=== PATIENT | female | born 1965 | race Caucasian/White ===

== ENCOUNTER → 2019-04-02 11:02 | Outpatient (BNVA) | payer MEDICARE, MEDICAID, SELFPAY | PROVIDERS: Visit Provider Nurse Practitioner Family | DX: I10 Essential (primary) hypertension (principal); E78.2 Mixed hyperlipidemia; K21.9 Gastro-esophageal reflux disease without esophagitis; D64.9 Anemia, unspecified | CPT/HCPCS: 80053; 80061; 84443; 85025 ==

== ENCOUNTER → 2019-10-25 11:05 | Outpatient (BNVA) | payer MEDICARE, MEDICAID, SELFPAY | PROVIDERS: Visit Provider Nurse Practitioner Family | DX: I10 Essential (primary) hypertension (principal); Z12.4 Encounter for screening for malignant neoplasm of cervix; Z12.31 Encounter for screening mammogram for malignant neoplasm of breast | CPT/HCPCS: 80053; 80061; 84443; 85025; 88175 ==

== ENCOUNTER 2019-11-06 08:21 | Outpatient (CLI) | payer MEDICARE, MEDICAID, SELFPAY ==
[2019-11-06] MEDS: iohexol 300 mg/mL 50 mL Btl PO (08:36)
[2019-11-06] MEDS: iohexol 300 mg/mL 100 mL Btl IV (09:42)
--- NOTE | 2019-11-06 10:00 | CT_ITS ---
WS: [id number] CT ABDOMEN PELVIS TECHNIQUE: Contrast-enhanced CT of the abdomen and pelvis with coronal and sagittal reformatted image s. CLINICAL INFORMATION: lower abdominal pain COMPARISON: None. DLP: 1150.[address] scans at [facility] use at least one of these dose optimization techniques: automat ed exposure control; mA and/or kV adjustment per patient size (includes targeted exams where dose is matched to clinical indication); or iterative reconstruction. FINDINGS: Diffuse fatty infiltration liver. Normal gallbladder. Normal spleen. Adrenal glands are normal. Antonette l renal parenchymal enhancement. No hydronephrosis. Normal pancreas. Portal veins and splenic vein ar e patent. Lung bases are well aerated. Normal GE junction. Normal caliber abdominal aorta. No abdomin al lymphadenopathy. Sigmoid diverticulosis. No evidence of acute diverticulitis. No evidence of small or large bowel obst ruction. Normal appendix. No inguinal lymphadenopathy. CT/CT abdomen pelvis w con* [id number] IMPRESSION: 1. Diffuse fatty infiltration liver. 2. Diverticulosis. No evidence of acute diverticulitis. 3. Appendix is normal. 4. No hydronephrosis in either kidney. 5. No free fluid in the abdomen or pelvis.
== END 2019-11-06 08:22 | disposition home or self-care (01) ==
LOC: RADWPI 08:26
PROVIDERS: Family Provider Nurse Practitioner Family; PCP Nurse Practitioner Family; Visit Provider Nurse Practitioner Family
DX: R10.30 Lower abdominal pain, unspecified (principal); K76.0 Fatty (change of) liver, not elsewhere classified; K57.30 Diverticulosis of large intestine without perforation or abscess without bleeding
CPT/HCPCS: 74177; Q9967

== ENCOUNTER 2019-12-11 11:29 | Outpatient (CLI) | payer MEDICARE, MEDICAID, SELFPAY ==
--- NOTE | 2019-12-11 12:00 | MM_ITS ---
WS: [id number] BILATERAL DIGITAL SCREENING MAMMOGRAM WITH CAD CLINICAL INFORMATION: screening mammo HISTORY: Screening mammogram. No current complaints. COMPARISON: None. TECHNIQUE: Bilateral CC and MLO views. FINDINGS: Fatty-replaced breasts bilaterally. No suspicious focal mass, asymmetry, calcifications, or validation architect ural distortion. No evidence of malignancy. Intramammary lymph node right breast. MM/[place] [id number] IMPRESSION: BI-RADS: 2-Benign FOLLOW UP: 1 Year Follow-up Recommend return to annual screening mammography.
== END 2019-12-11 11:30 | disposition home or self-care (01) ==
LOC: RADSHAW 11:34
PROVIDERS: PCP Nurse Practitioner Family; Visit Provider Nurse Practitioner Family
DX: Z12.31 Encounter for screening mammogram for malignant neoplasm of breast (principal)
CPT/HCPCS: 77067

== ENCOUNTER → 2020-07-23 12:06 | Outpatient (BNVA) | payer MEDICARE, MEDICAID, SELFPAY | PROVIDERS: PCP Nurse Practitioner Family; Visit Provider Nurse Practitioner Family | DX: I10 Essential (primary) hypertension (principal); L30.9 Dermatitis, unspecified; E78.2 Mixed hyperlipidemia; K21.9 Gastro-esophageal reflux disease without esophagitis | CPT/HCPCS: 80053; 80061; 84443; 85025 ==

== ENCOUNTER → 2020-11-18 12:26 | Outpatient (BNVA) | payer MEDICARE, MEDICAID, SELFPAY | PROVIDERS: PCP Nurse Practitioner Family; Visit Provider Nurse Practitioner Family | DX: E78.2 Mixed hyperlipidemia (principal); Z23 Encounter for immunization; I10 Essential (primary) hypertension; F79 Unspecified intellectual disabilities | CPT/HCPCS: 80053; 80061; 85025 ==

== ENCOUNTER → 2021-06-25 12:01 | Outpatient (BNVA) | payer MEDICARE, MEDICAID, SELFPAY | PROVIDERS: PCP Nurse Practitioner Family; Visit Provider Nurse Practitioner Family | DX: E78.5 Hyperlipidemia, unspecified (principal); K21.9 Gastro-esophageal reflux disease without esophagitis; D64.9 Anemia, unspecified; I10 Essential (primary) hypertension; E78.2 Mixed hyperlipidemia; Z12.31 Encounter for screening mammogram for malignant neoplasm of breast; Z12.11 Encounter for screening for malignant neoplasm of colon; J30.2 Other seasonal allergic rhinitis; J32.9 Chronic sinusitis, unspecified; R05.9 Cough, unspecified | CPT/HCPCS: 80053; 80061; 84443 ==

== ENCOUNTER → 2021-07-08 11:28 | Outpatient (BNVA) | payer MEDICARE, MEDICAID, OTHER, SELFPAY | PROVIDERS: PCP Nurse Practitioner Family; Referring Provider Nurse Practitioner Family; Visit Provider Surgery | DX: Z12.11 Encounter for screening for malignant neoplasm of colon (principal) ==

== ENCOUNTER 2021-08-18 05:47 | Day surgery (SDC) | payer MEDICARE, MEDICAID, SELFPAY ==
[2021-08-16 13:19] VITALS: BMI 30.8
[2021-08-18 06:12] VITALS: BP 159/92; PULSE 73; RESP 18; TEMP 36.2; O2SAT 99
[2021-08-18] MEDS: sodium chloride 0.9% 1,000 ML 30 ML IV (06:15)
--- NOTE | 2021-08-18 06:42 | PM.HP ---
Providers/Chief Complaint Primary Care Provider: RITU Key History of Present Illness Caroline Quintero is a 55 year old female who presents for a screening colonoscopy. She reports that she had a colonoscopy greater than 10 years ago which was within normal limits. She denies any abdominal pain, nausea, vomiting, diarrhea, constipation, hematochezia and/or melena. Review of Systems General: Reports: 10 or more systems reviewed and unremarkable except in HPI and below Medications/Allergies Home Medications Medication Instructions Recorded Confirmed Last Taken Type ferrous sulfate 325 mg (65 mg 325 mg PO DAILY #30 tab 06/25/21 08/18/21 08/17/21 Rx iron) tablet levocetirizine 5 mg tablet (Xyzal) 5 mg PO DAILY 90 Days #90 tab 06/25/21 08/18/21 08/17/21 Rx lisinopril 5 mg tablet 5 mg PO DAILY #30 tab 06/25/21 08/18/21 08/17/21 Rx benzonatate 100 mg capsule 100 mg PO TID PRN #90 cap 07/02/21 08/18/21 08/17/21 Rx lovastatin 40 mg tablet 60 mg PO DAILY #90 tab 07/22/21 08/18/21 08/17/21 Rx diclofenac sodium 75 mg 75 mg PO DAILY PRN 08/16/21 08/18/21 08/17/21 History tablet,delayed release naproxen 500 mg tablet,delayed 500 mg PO DAILY 08/16/21 08/18/21 08/17/21 History release (EC-Naproxen) omeprazole 20 mg capsule,delayed 20 mg PO DAILY 08/16/21 08/18/21 08/17/21 History release Allergies Allergy/AdvReac Type Severity Reaction Status Date / Time aspirin Allergy ADR-Abdominal Verified 08/18/21 06:10 Pain PFSH Acute PFSH: Medical History Anemia GERD (gastroesophageal reflux disease) Hyperlipidemia Hypertension Surgical History Hx of tonsillectomy Hx of tubal ligation Family History Mother Cancer myeloma Social History Smoking and tobacco status: never smoked Second hand smoke exposure: No Alcohol intake: never Lives independently: Yes Household members: children Housing: House Marital status: / service: No Current occupational status: unemployed History of recent travel: No Current gender identity: Female Vitals/I&O/Wt Last Vital Signs Temp 97.1 F L 08/18/21 06:12 Pulse 73 08/18/21 06:12 Resp 18 08/18/21 06:12 BP 159/92 08/18/21 06:12 Pulse Ox 99 08/18/21 06:12 Weight last 48 hrs Weight 191 lb Physical Exam Narrative: General : Patient is well developed , no acute distress, oriented x3 Head : Normal cephalic, a-traumatic. Ears : Pinnae and external canal are normal. Hearing is normal. Eyes : PERRLA, Sclera and injection are normal. No conjunctival discharge. Nose : Mucous membranes are without erythema. Throat : buccal mucosa is normal, gums are without significant recession or hypertrophy. Lungs : Equal chest rise bilaterally, no use of accessory muscles, trachea is midline. Cor : Rate and rhythm are normal. Abdomen : Soft, ND, NT, no g/r/m Extremities : No edema, no cyanosis or clubbing, dorsalis pedis pulses are present bilaterally, non-tender to palpation of calves. Upper extremities are normal bilaterally. Back : non-tender to palpation, no CVA tenderness. Neuro : CN II - XII intact, Upper and lower extremities have equal and full strength A&P Assessment and plan (1) Colon cancer screening: Status: Acute Plan Colonoscopy The risks and benefits of the procedure, including bleeding, infection, intestinal perforation requiring surgery, missed lesion, or explained to the patient. She is understanding of the risks and wishes to proceed. Attestations Medical Necessity Statement*: Patient will be discharged after procedure Coding Level of Care Code Acute Installment Loan Collector for Natty Sheets Diagnoses Colon cancer screening Z12.11
--- NOTE | 2021-08-18 06:45 | ANES.PREANE2 ---
Pre-Anesthetic Assessment Height/Weight: Height 1.68 m Weight 86.636 kg Temp Pulse Resp BP Pulse Ox 97.1 F L 73 18 159/92 99 08/18/21 06:12 08/18/21 06:12 08/18/21 06:12 08/18/21 06:12 08/18/21 06:12 Preop Diagnosis: Need for screening colonoscopy Operation Date: 08/18/21 07:00 Proposed Procedures p Colonoscopy 32654/z12.11(Not Applicable) - Lester Armendariz DO Familial anesthetic complications: none Last intake: Intake Last Liquid Date 08/17/21 Last Liquid Time 23:30 Last Solid Date 08/16/21 Last Solid Time 17:00 Social No alcohol and No tobacco Exam alert, oriented x 3, clear to auscultation bilaterally and regular rate & rhythm Airway Comments: Comments: MP 3 EDENTULOUS Pulmonary None reported CV/HEM none none Hepatic none GI none Metabolic none Musc/skel none Neuropsych none Anesthetic Plan ASA status: 2 Anesthesia: MAC Other: nPO MN Medications/Allergies Home Medications Medication Instructions Recorded Confirmed Last Taken Type ferrous sulfate 325 mg (65 mg 325 mg PO DAILY #30 tabs 06/25/21 08/18/21 08/17/21 Rx iron) tablet levocetirizine 5 mg tablet (Xyzal) 5 mg PO DAILY 90 days #90 tabs 06/25/21 08/18/21 08/17/21 Rx naproxen 500 mg tablet,delayed 500 mg PO DAILY 08/16/21 08/18/21 08/17/21 History release (EC-Naproxen) benzonatate 100 mg capsule 100 mg PO TID PRN cough #90 caps 09/15/21 Unknown Rx lisinopril 5 mg tablet 5 mg PO DAILY #30 tabs 09/15/21 Unknown Rx lovastatin 40 mg tablet See Rx Instructions .Route 09/15/21 Unknown Rx .COMPLEX #30 tabs omeprazole 20 mg capsule,delayed See Rx Instructions .Route 09/15/21 Unknown Rx release .COMPLEX #30 caps diclofenac sodium 75 mg See Rx Instructions .Route 09/17/21 Unknown Rx tablet,delayed release .COMPLEX #60 tabs Allergies Allergy/AdvReac Type Severity Reaction Status Date / Time aspirin Allergy ADR-Abdominal Verified 08/18/21 06:10 Pain Current Medications Generic Name Dose Route Start Last Admin Trade Name Freq PRN Reason Stop Dose Admin Sodium Chloride 1,000 mls @ 30 mls/hr 08/18/21 06:00 08/18/21 06:15 Sodium Chloride 0.9% IV 08/19/21 05:59 30 mls/hr .Q24H RIC Administration PFSH Anesthesia Medical History Anemia GERD (gastroesophageal reflux disease) Hyperlipidemia Hypertension Surgical History Hx of tonsillectomy Hx of tubal ligation Family History Mother Cancer myeloma Social History Smoking and tobacco status: never smoked Second hand smoke exposure: No Alcohol intake: never Lives independently: Yes Household members: children Housing: House Marital status: / service: No Current occupational status: unemployed History of recent travel: No Current gender identity: Female Data Anesthesia Cardiac Studies: No Data to Display Anesthesia Procedures Date of Procedure 08/18/21
[2021-08-18 07:19] VITALS: BP 95/65; PULSE 61; RESP 16; TEMP 36.3; O2SAT 94
[2021-08-18 07:46] VITALS: BP 118/60; PULSE 67; RESP 18; O2SAT 95
--- NOTE | 2021-08-18 13:45 | ANE.PACU2 ---
Inpatient post-anesthesia follow up: Airway intact: Yes Vital signs: Temperature 97.4 F Pulse Rate 67 Respiratory Rate 18 Blood Pressure 118/60 Pulse Oximetry 95 Oxygen Delivery Me thod Room Air Oxygen Flow Rate Fraction of Inspir ed Oxygen Hydration adequate: Yes Nausea and vomiting: No Pain level: 1 Mental status: Baseline
== END 2021-08-18 07:55 | disposition home or self-care (01) ==
PROVIDERS: PCP Nurse Practitioner Family; Visit Provider Surgery
PROC: 0DJD8ZZ Inspection of Lower Intestinal Tract, Via Natural or Artificial Opening Endoscopic (ICD-10-PCS; CPT 45378; principal; 2021-08-18 07:00)
DX: Z12.11 Encounter for screening for malignant neoplasm of colon (principal); K57.30 Diverticulosis of large intestine without perforation or abscess without bleeding; K21.9 Gastro-esophageal reflux disease without esophagitis; E78.5 Hyperlipidemia, unspecified; I10 Essential (primary) hypertension
CPT/HCPCS: G0121; J2704; J7030

== ENCOUNTER → 2021-12-01 13:01 | Outpatient (BNVA) | payer MEDICARE, MEDICAID, SELFPAY | PROVIDERS: PCP Nurse Practitioner Family; Visit Provider Nurse Practitioner Family | DX: E78.2 Mixed hyperlipidemia (principal); I10 Essential (primary) hypertension; D64.9 Anemia, unspecified; R05.9 Cough, unspecified | CPT/HCPCS: 80053; 80061; 84443; 85025 ==

== ENCOUNTER 2021-12-16 14:14 | Emergency (ER) | payer MEDICARE, MEDICAID, SELFPAY ==
--- NOTE | 2021-12-16 14:23 | XR_ITS ---
WS: [id number] Exam: XR chest 1V portable [id number] Date/Time of Exam: 12/16/2021 2:25 PM Reason For Exam: chest pain Comparison 04/03/2014. The lungs are fully expanded and clear. Normal cardiomediastinal silhouette. Prominent right-sided ep icardial fat pad. No pleural effusion. Several scattered calcified granulomas on the right. Monitorin g leads superimpose the chest. XR/XR chest 1V portable [id number] IMPRESSION: 1. No acute cardiopulmonary finding.
--- NOTE | 2021-12-16 14:23 | ECG_ITS ---
[facility] Test Date: 2021-12-16 Pat Name: Caroline Quintero Department: Room: Gender: Female Electrical Maintenance Engineer: : 1965 Requested By: Arsen Beltran Order Number: [id number] Luan MD: Sita Fuentes M.D. Measurements Intervals [place] Rate: 102 P: 52 ND: 167 QRS: 28 QRSD: 86 T: 50 QT: 335 QTc: 438 Interpretive Statements SINUS TACHYCARDIA POSSIBLE LEFT ATRIAL ENLARGEMENT [-0.1mV P-WAVE IN V1/V2] NONSPECIFIC T-WAVE ABNORMALITY ABNORMAL RHYTHM ECG Compared to ECG 04/03/2014 12:35:38 T-wave abnormality now present ST (T wave) deviation no longer present Electronically Signed On 12-16-2021 18:00:18 CDT by Sita Fuentes M.D. [email or web address]/[id number]
[2021-12-16 14:28] VITALS: BP 194/87; PULSE 107; RESP 18; TEMP 36.6; O2SAT 98; BMI 33.9
--- NOTE | 2021-12-16 14:31 | ED_ITS ---
HPI - Chest Pain General: Chief Complaint: Chest Pain Stated Complaint: cp Time Seen by Provider: 12/16/21 14:22 Source: patient Mode of arrival: ambulatory History of Present Illness: 56-year-old female presents emergency room via EMS complaining of chest discomfort. She was essentially resting she was reading books and began having chest she was given nitro in route she has not given aspirin because she claimed allergy to it she is completely pain-free on arrival she has not previously had episodes of chest pain has a history of hyperlipidemia and hypertension. MD complaint: chest discomfort Onset (ago): minute(s) Timing of current episode: episodic Prior episodes: No Onset: during rest Pain location: left chest Pain radiation: none Severity: mild Quality: tightness, aching and heaviness Relieving factors: nothing Exacerbating factors: nothing Associated symptoms: Deny abdominal pain, diaphoresis, dyspnea, fever(s), leg edema, nausea, palpitations, sense of impending doom, syncope or vomiting Treatment prior to arrival: nitroglycerin Review of Systems Const: Denies: fever(s), chills, fatigue, malaise or diaphoresis ENMT: Denies: throat pain, ear or mastoid pain, nasal discharge or nasal congestion Card: Reports: chest pain; Denies: palpitations, irregular heart rhythm or syncope Resp: Denies: dyspnea GI: Denies: abdominal pain, nausea or vomiting : Denies: flank pain, difficulty voiding, dysuria, urinary frequency or urinary urgency Skin/Breast: Denies: rash or pruritus PFSH ED PFSH: Medical History Anemia GERD (gastroesophageal reflux disease) Hyperlipidemia Hypertension Surgical History Hx of tonsillectomy Hx of tubal ligation Family History Mother Cancer myeloma Social History Smoking and tobacco status: never smoked Second hand smoke exposure: No Alcohol intake: never Lives independently: Yes Household members: children Housing: House Marital status: / service: No Current occupational status: unemployed History of recent travel: No Current gender identity: Female Physical Exam Const: COMMON NORMALS: no acute distress GENERAL APPEARANCE: cooperative and comfortable ORIENTATION/CONSCIOUSNESS: Yes awake, Yes oriented to person, Yes oriented to place and Yes oriented to time HENMT: COMMON NORMALS: normocephalic, atraumatic and hearing grossly normal bilaterally HEAD & SCALP: normocephalic and atraumatic Resp: COMMON NORMALS: normal respiratory effort, No retractions, No use of accessory muscles and clear to auscultation bilaterally AUSCULTATION: clear to auscultation bilaterally Cardio: COMMON NORMALS: regular rate, regular rhythm and No murmurs present (Cardio) RATE: regular rate RHYTHM: regular rhythm GI: COMMON NORMALS: Soft to palpation and No hepatosplenomegaly present AUSCULTATION: Yes normoactive bowel sounds PALPATION: Yes Soft to palpation, No Tenderness to palpation present (GI), No Guarding due to palpation present (GI) and Yes No hepatosplenomegaly present Extremity: COMMON NORMALS: normal to inspection, capillary refill normal, no clubbing, cyanosis or edema, no calf tenderness and no pedal edema Neuro: SENSORIUM/ORIENTATION: Yes oriented to person, Yes oriented to place and Yes oriented to time Skin: COMMON NORMALS: no rashes or lesions noted GENERAL SKIN EXAM: no rashes or lesions noted Course Vital Signs: Vital signs: Vital Signs Temperature 97.8 F 12/16/21 14:28 Pulse Rate 79 12/16/21 18:30 Respiratory Rate 14 12/16/21 18:30 Blood Pressure 170/98 12/16/21 17:48 Pulse Oximetry 97 12/16/21 18:30 Oxygen Delivery Me thod 12/16/21 14:28 MDM - Chest Pain Medical Decision Making His EKG and imaging are normal no signs of acute coronary disease. We will discharge patient home started on lisinopril 10 daily and can add isosorbide mononitrate and baby aspirin we will set up for outpatient cardiac sestamibi stress testing return if is further chest pain Medical Records I reviewed the patient's medical records. Lab Data I reviewed the patient's lab results. : 12/16/21 14:57 12/16/21 14:57 Radiology Impressions Chest X-Ray 12/16/21 14:23 IMPRESSION: 1. No acute cardiopulmonary finding. Laboratory Results WBC 10.7 10^3/uL (4.0-10.0) H 10/27/22 14:57 RBC 5.50 10^6/uL (4.1-5.3) H 12/16/21 14:57 Hgb 14.3 g/dL (11.5-15.3) 12/16/21 14:57 Hct 44.6 % (37.0-47.0) 12/16/21 14:57 MCV 81.1 fl (81-99) 12/16/21 14:57 MCH 26.0 pg (28.0-34.0) L 12/16/21 14:57 MCHC 32.1 g/dL (30.0-36.0) 12/16/21 14:57 RDW 13.4 % (12.1-15.1) 12/16/21 14:57 Plt Count 332 10^3/cmm (130-400) 12/16/21 14:57 MPV 9.4 fL (7.4-10.4) 12/16/21 14:57 Neut % (Auto) 75.5 % 12/16/21 14:57 Lymph % (Auto) 13.9 % 12/16/21 14:57 [place] % (Auto) 7.1 % 12/16/21 14:57 Eos % (Auto) 2.2 % 12/16/21 14:57 Baso % (Auto) 0.6 % 12/16/21 14:57 Neut # (Auto) 8.09 10^3/uL (1.8-7.7) H 12/16/21 14:57 Lymph # (Auto) 1.5 10^3/uL (0.8-4.8) 12/16/21 14:57 [place] # (Auto) 0.8 10^3/uL (0.2-0.9) 12/16/21 14:57 Eos # (Auto) 0.2 10^3/uL (0.0-0.8) 12/16/21 14:57 Baso # (Auto) 0.1 10^3/uL (0.0-0.1) 12/16/21 14:57 Nucleated RBC % (auto) 0 % 12/16/21 14:57 Nucleated RBCs # 0.0 /100WBC 12/16/21 14:57 Sodium 137 mmol/L (136-145) 12/16/21 14:57 Potassium 3.6 mmol/L (3.5-5.1) 12/16/21 14:57 Chloride 104 mmol/L (98-107) 12/16/21 14:57 Carbon Dioxide 21 mmol/L (22-29) L 12/16/21 14:57 Anion Gap 15.6 (5-19) 12/16/21 14:57 BUN 13 mg/dL (6-20) 12/16/21 14:57 Creatinine 0.7 mg/dL (0.5-0.9) 12/16/21 14:57 GFR Calculation 86.2 mL/min (90-130) L 12/16/21 14:57 Glucose 128 mg/dL (65-115) H 12/16/21 14:57 Calculated Osmolality 286 mOsm/kg (285-295) 12/16/21 14:57 Calcium 9.0 mg/dL (8.5-10.5) 12/16/21 14:57 Total Bilirubin 0.3 mg/dL (0.15-1.2) 12/16/21 14:57 AST 22 U/L (0-32) 12/16/21 14:57 ALT 32 U/L (0-33) 12/16/21 14:57 Alkaline Phosphatase 97 U/L (35-105) 12/16/21 14:57 Troponin T Baseline 7 ng/L (0-10) 12/16/21 14:57 Troponin T 120 Minute 7.24 ng/L (0-10) 12/16/21 17:32 Delta Troponin T 0.24 ABS# (0-10) 12/16/21 17:32 Total Protein 7.3 g/dL (6.6-8.7) 12/16/21 14:57 Albumin 4.1 g/dL (3.5-5.2) 12/16/21 14:57 Globulin 3.2 g/dL (1.3-4.6) 12/16/21 14:57 Discharge Plan Discharge Patient Disposition: Home Clinical Impression: Atypical chest pain Condition: Stable Prescriptions: New isosorbide mononitrate 30 mg tablet extended release 24 hr 30 mg PO DAILY Qty: 30 0RF aspirin 81 mg tablet,delayed release (DR/EC) 81 mg PO DAILY Qty: 30 0RF Changed lisinopril 5 mg tablet 10 mg PO QAM Qty: 60 0RF No Action benzonatate 100 mg capsule 100 mg PO TID PRN (Reason: cough) Qty: 90 1RF lovastatin 40 mg tablet 40 mg PO QAM ferrous sulfate 325 mg (65 mg iron) tablet 325 mg PO QAM EC-Naproxen 500 mg tablet,delayed release (DR/EC) 500 mg PO BID PRN (Reason: Pain) omeprazole 20 mg capsule,delayed release(DR/EC) 20 mg PO QAM diclofenac sodium 75 mg tablet,delayed release (DR/EC) 75 mg PO BID PRN (Reason: Pain) Rx Instructions: DO NOT TAKE WITH NAPROXEN Xyzal 5 mg tablet 5 mg PO QAM Discharge Orders: Discharge ED (Routine); Ordered 12/16/21 Ordered By: Arsen Mcqueen Referrals: Carolin Stallworth FNP [Primary Care Provider] - Discharge Diet: Usual diet Discharge Activity: Limit activity as instructed Patient Instructions: Opioid Safety, Pain Management Activity Restrictions/Additional Instructions: Case management make arrangements for you to have a Lexiscan sestamibi stress test. Avoid exertional activity start isosorbide mononitrate once daily increase lisinopril to 10 mg daily. Take enteric-coated baby aspirin once daily Coding Level of Care Code ED Video Production Specialist for Natty Fwmargaret Exam Detailed
[2021-12-16 15:05] LABS: Basophils # 0.1 10^3/uL (0.0-0.1); Basophils % 0.6 %; Eosinophils # 0.2 10^3/uL (0.0-0.8); Eosinophils % 2.2 %; Hematocrit 44.6 % (37.0-47.0); Hemoglobin 14.3 g/dL (11.5-15.3); Lymphocytes # 1.5 10^3/uL (0.8-4.8); Lymphocytes % 13.9 %; Mean Corpuscular HGB Conc 32.1 g/dL (30.0-36.0); Mean Corpuscular Volume 81.1 fl (81-99); Mean Platelet Volume 9.4 fL (7.4-10.4); Monocytes # 0.8 10^3/uL (0.2-0.9); Monocytes % 7.1 %; Neutrophils # 8.09 10^3/uL (1.8-7.7); Neutrophils % 75.5 %; Nucleated Red Blood Cells % 0 %; Platelet Count 332 10^3/cmm (130-400); Red Cell Distribution Width 13.4 % (12.1-15.1); White Blood Count 10.7 10^3/uL (4.0-10.0)
[2021-12-16 15:22] LABS: Troponin(5th) Baseline 7 ng/L (0-10)
[2021-12-16 15:24] LABS: Alanine Aminotransferase 32 U/L (0-33); Albumin Level 4.1 g/dL (3.5-5.2); Alkaline Phosphatase 97 U/L (35-105); Anion Gap 15.6 (5-19); Aspartate Amino Transferase 22 U/L (0-32); Blood Urea Nitrogen 13 mg/dL (6-20); Carbon Dioxide 21 mmol/L (22-29); Chloride 104 mmol/L (98-107); Globulin 3.2 g/dL (1.3-4.6); Glomerular Filtration Rate 86.2 mL/min (90-130); Glucose 128 mg/dL (65-115); Osmolality Calculated 286 mOsm/kg (285-295); Potassium 3.6 mmol/L (3.5-5.1); Sodium 137 mmol/L (136-145); Total Bilirubin 0.3 mg/dL (0.15-1.2); Total Protein 7.3 g/dL (6.6-8.7)
--- NOTE | 2021-12-16 16:23 | ECG_ITS ---
[facility] Test Date: 2021-12-16 Pat Name: Caroline Quintero Department: Room: Gender: Female Quick Technician: : 1965 Requested By: Arsen Beltran Order Number: [id number] Luan MD: Sita Fuentes M.D. Measurements Intervals [place] Rate: 84 P: 59 VA: 157 QRS: 24 QRSD: 86 T: 38 QT: 378 QTc: 449 Interpretive Statements SINUS RHYTHM POSSIBLE LEFT ATRIAL ENLARGEMENT [-0.1mV P-WAVE IN V1/V2] Compared to ECG 12/16/2021 15:02:20 Sinus tachycardia no longer present T-wave abnormality no longer present Electronically Signed On 12-16-2021 18:04:42 CDT by Sita Fuentes M.D. [email or web address].[employer]/store/[id number]
[2021-12-16 17:48] VITALS: BP 170/98; PULSE 82; RESP 16; O2SAT 98
[2021-12-16 18:01] LABS: Troponin 5 2HR 7.24 ng/L (0-10)
[2021-12-16 18:22] LABS: Troponin 5 2HR Delta 0.24 ABS# (0-10)
[2021-12-16 18:30] VITALS: PULSE 79; RESP 14; O2SAT 97
--- NOTE | 2021-12-21 15:09 | DCPLANNER ---
Addendum entered by Catie Cid 02/25/22 11:27: Patient did attend appointment scheduled for an outpatient stress test - patient did attend appointment. Addendum entered by Catie Cid 01/17/22 08:53: Patient has an outpatient stress test scheduled for Monday02.16.22 by 9:15. Centralized scheduling will call patient with appointment information. Original Note: print traffic manager had message to schedule an outpatient stress test for patient. print traffic manager faxed signed order to centralized scheduling, who will call patient with appointment information.
== END 2021-12-16 18:31 | disposition home or self-care (01) ==
PROVIDERS: Emergency Provider Family Medicine; PCP Nurse Practitioner Family
DX: R07.89 Other chest pain (principal); E78.5 Hyperlipidemia, unspecified; I10 Essential (primary) hypertension
CPT/HCPCS: 36415; 71045; 80053; 84484; 85025; 93005; 99285

== ENCOUNTER → 2022-02-04 12:21 | Outpatient (BNVA) | payer MEDICARE, MEDICAID, SELFPAY | PROVIDERS: PCP Nurse Practitioner Family; Visit Provider Nurse Practitioner Family | DX: R31.9 Hematuria, unspecified (principal); N39.0 Urinary tract infection, site not specified | CPT/HCPCS: 81000 ==

== ENCOUNTER 2022-02-16 07:01 | Outpatient (CLI) | payer MEDICARE, MEDICAID, SELFPAY ==
--- NOTE | 2022-02-16 | ECG_ITS ---
[facility] Test Date: 2022-02-16 Pat Name: Caroline Quintero Department: Room: Gender: Female Policy Writer Sales: : 1965 Requested By: Arsen Beltran Order Number: [id number] Luan MD: Zev Barnard M.D. Interpretive Statements NAME OF STUDY: LEXISCAN SESTAMIBI STRESS TEST INDICATION: Atypical Chest Pain, PROCEDURE: At the baseline, the EKG revealed normal sinus rhythm with a heart rate of 90 bpm. The baseline heart was 90 bpm with a blood pressue of 157/92 mm of Hg Lexiscan was infused over a period of 20 seconds. A total of 0.4 milligrams of Lexiscan was infused. The stress phase was continued for a total of 5 minutes. Heart rate at the end of the stress phase was 97 bpm with a blood pressure 144/74 mm of Hg. The EKG at the peak infusion revealed no significant changes. Sestamibi was injected 20 seconds after the Lexiscan infusion. Heart rate at the end of the recovery phase was 97 bpm with a blood pressure of 143/79 mm of Hg. CONCLUSION: 1. No significant EKG changes with the LexiScan infusion 2. No LexiScan induced chest pain or cardiac arrhythmia 3. Normal blood pressure and heart rate response 4. Sestamibi/sestamibi perfusion scan pending; see separate report. Electronically Signed On 02-17-2022 17:56:07 DIRECTOR OF DIRECT MARKETING by Zev Barnard M.D. [email or web address].[employer]/store/[id number]
[2022-02-16 07:15] VITALS: BMI 33.0
--- NOTE | 2022-02-16 08:20 | NMCV_ITS ---
NM jonny perf SPECT r/s* [id number] Caroline Quintero Age: 56 Gender: F : 1965 Exam Date: 02/16/2022 08:28 Ordering Phys: Arsen Mcqueen DO Technologist: GURINDER Duggan Exam Location: [facility] Indications: CHEST PAIN STRESS TEST Please see separate [facility] for full findings IMAGE PROTOCOL Rest/Stress 1 Lexiscan Day Radiopharmaceutical Dose (mCi) Administration Site Administered by Rest: Tc-99m 10.9 IV GURINDER Johnston Sestamibi Stress:Tc-99m 33.0 IV GRUINDER Johnston Sestamibi Rest: 16-Feb-2022 60 Discovery 630 Stress: 16-Feb-2022 30 Discovery 630 0.4mg Lexiscan. Images obtained in supine and prone position. SPECT RESULTS Technical Quality: Excellent Raw Data Analysis: Normal Image Corrections: No attenuation or motion correction applied Summed Stress Score: 1 Summed Rest Score: 0 Summed Difference Score: 1 PERFUSION FINDINGS Small area of slightly decreased tracer uptake in the apical lateral region, only in the supine position. Some reversibility was noted in this region at rest. However with the prone imaging, there was no significant perfusion normalities FUNCTIONAL RESULTS (calculated via Gated SPECT) Stress Image LV EF (%): 84 Stress EDV (mL):81 TID: 0.89 Stress ESV (mL):13 FUNCTIONAL FINDINGS: Segmental wall motion analysis revealing no gross wall motion abnormalities IMPRESSIONS 1. Myocardial perfusion imaging revealing a small area of reversible defect in the apical lateral region suggesting ischemia in the distribution of the left circumflex artery. However because of the inconsistency of this finding with the supine imaging, the reliability is very questionable. 2. Normal LV ejection fraction of 84%. 3. LV wall motion analysis revealing no gross wall motion abnormalities. 4. Normal LV volume No similar previous studies are available for comparison Dr Zev Barnard MD [facility] (Electronically Signed) Final Date: 16 February 2022 13:52 S
[2022-02-16] MEDS: regadenoson 0.4 Mg/5 ml Syringe IVP (09:06)
[2022-02-16 09:21] VITALS: BP 143/79; PULSE 96
== END 2022-02-16 07:02 | disposition home or self-care (01) ==
LOC: CDL 07:06
PROVIDERS: PCP Nurse Practitioner Family; Visit Provider Family Medicine
DX: R07.89 Other chest pain (principal); R94.39 Abnormal result of other cardiovascular function study
CPT/HCPCS: 36415; 78452; 93017; 96374; A9500; J2785

== ENCOUNTER → 2022-10-13 10:21 | Outpatient (BNVA) | payer MEDICARE, MEDICAID, SELFPAY | PROVIDERS: PCP Nurse Practitioner Family; Visit Provider Nurse Practitioner Family | DX: Z12.4 Encounter for screening for malignant neoplasm of cervix (principal); I10 Essential (primary) hypertension; R73.9 Hyperglycemia, unspecified | CPT/HCPCS: 80053; 80061; 83036; 84443; 85025; 87624 ==

== ENCOUNTER 2022-11-07 13:04 | Outpatient (CLI) | payer MEDICARE, MEDICAID, SELFPAY ==
--- NOTE | 2022-11-07 13:33 | MM_ITS ---
WS: [id number] BILATERAL 3D TOMOSYNTHESIS DIGITAL SCREENING MAMMOGRAPHY WITH CAD CLINICAL INFORMATION: Z12.39 - Encounter for other screening for malignant neop... HISTORY: Screening mammogram. No current complaints. COMPARISON: 2020 TECHNIQUE: Bilateral CC and MLO views. FINDINGS: Scattered fibroglandular densities bilaterally. No suspicious focal mass, asymmetry, calcifications, or architectural distortion. No evidence of malignancy. Stable incidental intramammary lymph nodes. IMPRESSION: MM/[place] [id number] BI-RADS: 2-Benign FOLLOW UP: 1 Year Follow-up Recommend return to annual screening mammography.
--- NOTE | 2022-11-07 14:00 | XR_ITS ---
WS: [id number] SCREENING DEXA SCAN Idea Device CLINICAL INFORMATION: Z78.0 - Asymptomatic menopausal state COMPARISON: None. FINDINGS: The L1-L4 bone mineral density measures 1.1. This corresponds to a T score score of -0.7 and Z score of -.07. Left femoral neck bone mineral density measures 1.1. This corresponds to a T score of 0.7 and Z score of 0.8. Right femoral neck bone mineral density measures 1.1. This corresponds to a T score 0.9of and Z score of 1.0. Mean femoral neck bone mineral density measures 1.1. This corresponds to a T score of 0.8 and Z score of 0.9. IMPRESSION: Normal bone mineralization. Patient's FRAX calculated 10 year probability for major osteoporotic fracture is 9.8% and osteoporoti c hip fracture is 0.3%.
== END 2022-11-07 13:05 | disposition home or self-care (01) ==
PROVIDERS: PCP Nurse Practitioner Family; Visit Provider Nurse Practitioner Family
DX: Z12.31 Encounter for screening mammogram for malignant neoplasm of breast; Z13.820 Encounter for screening for osteoporosis; Z78.0 Asymptomatic menopausal state
CPT/HCPCS: 77063; 77067; 77080

== ENCOUNTER → 2023-04-12 10:45 | Outpatient (BNVA) | payer MEDICARE, MEDICAID, SELFPAY | PROVIDERS: PCP Nurse Practitioner Family; Visit Provider Nurse Practitioner Family | DX: I10 Essential (primary) hypertension (principal); R73.9 Hyperglycemia, unspecified | CPT/HCPCS: 80053; 80061; 83036; 84443; 85025 ==

== ENCOUNTER → 2023-08-02 10:55 | Outpatient (BNVA) | payer MEDICARE, MEDICAID, SELFPAY | PROVIDERS: PCP Nurse Practitioner Family; Visit Provider Nurse Practitioner Family | DX: R73.9 Hyperglycemia, unspecified (principal); I10 Essential (primary) hypertension | CPT/HCPCS: 80053; 80061; 83036; 84443; 85025 ==

== ENCOUNTER → 2023-11-02 09:52 | Outpatient (BNVA) | payer MEDICARE, MEDICAID, SELFPAY | PROVIDERS: PCP Nurse Practitioner Family; Visit Provider Nurse Practitioner Family | DX: J02.9 Acute pharyngitis, unspecified (principal) | CPT/HCPCS: 87071; 87426; 87880 ==

== ENCOUNTER → 2024-01-12 11:27 | Outpatient (BNVA) | payer MEDICARE, MEDICAID, SELFPAY | PROVIDERS: PCP Nurse Practitioner Family; Visit Provider Nurse Practitioner Family | DX: R05.9 Cough, unspecified (principal) | CPT/HCPCS: 87400; 87426; 87880 ==

== ENCOUNTER → 2024-02-02 11:44 | Outpatient (BNVA) | payer MEDICARE, MEDICAID, SELFPAY | PROVIDERS: PCP Nurse Practitioner Family; Visit Provider Nurse Practitioner Family | DX: I10 Essential (primary) hypertension (principal) | CPT/HCPCS: 80053; 80061; 83036; 84443; 85025 ==

== ENCOUNTER → 2024-05-23 13:50 | Outpatient (BNVA) | payer MEDICARE, MEDICAID, SELFPAY | PROVIDERS: PCP Nurse Practitioner Family; Visit Provider Nurse Practitioner Family | DX: I10 Essential (primary) hypertension (principal); E78.2 Mixed hyperlipidemia; R73.9 Hyperglycemia, unspecified | CPT/HCPCS: 80053; 80061; 83036; 85025 ==

== ENCOUNTER 2024-05-30 10:51 | Outpatient (CLI) | payer MEDICARE, MEDICAID, SELFPAY ==
--- NOTE | 2024-05-30 11:01 | XR_ITS ---
WS: [id number] Exam: XR knee RT 3V* [id number] Date/Time of Exam: 05/30/2024 11:24 AM Reason For Exam: M25.561 - Pain in right knee No fracture. Minimal tricompartmental degenerative change. Large effusion in the suprapatellar bursa. Normal soft tissues. XR/XR knee RT 3V* [id number] IMPRESSION: 1. Mild degenerative change. Large joint effusion.
== END 2024-05-30 10:52 | disposition home or self-care (01) ==
PROVIDERS: PCP Nurse Practitioner Family; Visit Provider Nurse Practitioner Family
DX: M17.11 Unilateral primary osteoarthritis, right knee (principal); M25.461 Effusion, right knee
CPT/HCPCS: 73562

== ENCOUNTER → 2024-06-14 08:47 | Outpatient (BNVA) | payer MEDICARE, MEDICAID, SELFPAY | PROVIDERS: PCP Nurse Practitioner Family; Visit Provider Orthopaedic Surgery | DX: M25.561 Pain in right knee (principal); G89.29 Other chronic pain | CPT/HCPCS: 99204 ==

== ENCOUNTER 2024-06-20 06:30 | Outpatient (RCR) | payer MEDICARE, MEDICAID, SELFPAY | END 2024-06-25 08:23 | disposition home or self-care (01) | LOC: APT 06:30 | PROVIDERS: Visit Provider Orthopaedic Surgery | DX: M25.561 Pain in right knee (principal) | CPT/HCPCS: 97161 ==

== ENCOUNTER → 2024-07-25 07:33 | Outpatient (BNVA) | payer MEDICARE, MEDICAID, SELFPAY | PROVIDERS: PCP Nurse Practitioner Family; Visit Provider Orthopaedic Surgery | DX: M25.561 Pain in right knee (principal); G89.29 Other chronic pain; M22.2X1 Patellofemoral disorders, right knee | CPT/HCPCS: 99213 ==

== ENCOUNTER → 2024-10-28 08:35 | Outpatient (BNVA) | payer MEDICARE, MEDICAID, SELFPAY | PROVIDERS: PCP Nurse Practitioner Family; Visit Provider Nurse Practitioner Family | DX: I10 Essential (primary) hypertension (principal); E11.65 Type 2 diabetes mellitus with hyperglycemia; E78.2 Mixed hyperlipidemia | CPT/HCPCS: 80053; 80061; 83036; 85025 ==

== ENCOUNTER → 2024-10-29 09:11 | Outpatient (BNVA) | payer MEDICARE, MEDICAID, SELFPAY | PROVIDERS: PCP Nurse Practitioner Family; Visit Provider Nurse Practitioner Family | DX: E11.9 Type 2 diabetes mellitus without complications (principal) | CPT/HCPCS: 82043 ==

== ENCOUNTER 2024-12-31 15:40 | Outpatient (CLI) | payer MEDICARE, MEDICAID, SELFPAY ==
--- NOTE | 2024-12-31 16:00 | MM_ITS ---
WS: [id number] BILATERAL 3D TOMOSYNTHESIS DIGITAL SCREENING MAMMOGRAPHY WITH CAD CLINICAL INFORMATION: Z12.39 - Encounter for other screening for malignant neop... HISTORY: Screening mammogram. No current complaints. COMPARISON: 2022 TECHNIQUE: Bilateral CC and MLO views. FINDINGS: Scattered fibroglandular densities bilaterally. No suspicious focal mass, asymmetry, calcifications, or architectural distortion. No evidence of malignancy. MM/MM scr BI tomosynthesis [id number] IMPRESSION: DENSITY: There are scattered areas of fibroglandular density. BI-RADS: 1 - Negative. FOLLOW UP: 1 Year Follow-up Recommend return to annual screening mammography.
== END 2024-12-31 15:41 | disposition home or self-care (01) ==
PROVIDERS: PCP Nurse Practitioner Family; Visit Provider Nurse Practitioner Family
DX: Z12.31 Encounter for screening mammogram for malignant neoplasm of breast (principal); R92.323 Mammographic fibroglandular density, bilateral breasts
CPT/HCPCS: 77063; 77067

== ENCOUNTER → 2025-01-22 10:08 | Outpatient (BNVA) | payer MEDICARE, MEDICAID, SELFPAY | PROVIDERS: PCP Nurse Practitioner Family; Visit Provider Podiatrist Foot & Ankle Surgery | DX: M21.611 Bunion of right foot (principal); M21.612 Bunion of left foot; M20.41 Other hammer toe(s) (acquired), right foot; M20.42 Other hammer toe(s) (acquired), left foot | CPT/HCPCS: 73630; 99203 ==